=== PATIENT | male | born 1945 | race Caucasian/White ===

== ENCOUNTER 2018-09-15 08:07 | Day surgery (SDC) | payer OTHER, MEDICARE ==
[2018-09-15 07:29] VITALS: BMI 34.9
[2018-09-15 10:35] VITALS: BP 122/58; PULSE 62; TEMP 98.2
== END 2018-09-15 10:35 | disposition home or self-care (01) ==
LOC: JASU-ENDO 08:07
PROVIDERS: ATTEND Internal Medicine Gastroenterology
PROC: 0DJD8ZZ Inspection of Lower Intestinal Tract, Via Natural or Artificial Opening Endoscopic (ICD-10-PCS; principal; 2018-09-15 08:45)
DX: Z51.11 Encounter for antineoplastic chemotherapy (principal); K57.30 Diverticulosis of large intestine without perforation or abscess without bleeding